=== PATIENT | male | born 2000 | race Caucasian/White ===

== ENCOUNTER 2021-08-04 00:01 | Emergency (ER) | payer MEDICAID ==
[~2021-08-04] VITALS: Ht 188 cm; Wt 120.2 kg
--- NOTE | 2021-08-04 00:39 | NUR ---
Patient walked into ER c/o sharp back pain radiating to the knee with a pain scale of 7/10
--- NOTE | 2021-08-04 00:42 | NUR ---
Dr Pacheco in room for ROSS
[2021-08-04] MEDS ORDERED: HYDR-4209 PO (00:51)
[2021-08-04] MEDS ORDERED: CYCL10TA9 PO (00:51)
--- NOTE | 2021-08-04 01:29 | NUR ---
Patient discharged to home in stable condition. Written and verbal after care instructions given. Patient verbalizes understanding of instructions. Stressed follow up or return to ER for worsening s/s. Patient is able to ambulate steady gait, A/Ox4, no distress noted.
[2021-08-04 01:30] VITALS: BP 111/67
== END 2021-08-04 01:30 | disposition home or self-care (01) ==
LOC: ER 00:08
DX: M54.50 Low back pain, unspecified (principal)
CPT/HCPCS: 72100; A4663

== ENCOUNTER 2021-08-11 01:30 | Emergency (ER) | payer MEDICAID ==
[~2021-08-11] VITALS: Ht 188 cm; Wt 120.2 kg
[~2021-08-11 01:30] MED LIST: CYCL10TA9 PO; HYDR-4209 PO
--- NOTE | 2021-08-11 02:25 | NUR ---
Patient walked into ER c/o lower back pain. Patient is ambulatory with steady gait
[2021-08-11] MEDS ORDERED: KETOROLAC TROMETHAMINE 60 MG INJ IM ONE (02:37)
[2021-08-11] MEDS: KETOROLAC TROMETHAMINE 60 MG INJ IM ONE (02:40)
[2021-08-11 03:04] LABS: *BILIRUBIN,URIN NEGATIVE (NEGATIVE); *BLOOD, URINE 2+ (NEGATIVE); *CLARITY,URINE CLEAR (CLEAR); *COLOR,URINE YELLOW (YELLOW); *KETONES,URINE TRACE (NEGATIVE); *UROBILINOGEN,URINE 0.2 E.U./dl (NORMAL); LEUKOCYTE ESTERASE ,URINE NEGATIVE (NEGATIVE); NITRITE, URINE NEGATIVE (NEGATIVE); UGLUCOSE NEGATIVE (NEGATIVE)
[2021-08-11 03:12] LABS: BACTERIA,URINE NONE SEEN /HPF (NONE SEEN); MUCUS,URINE FEW /LPF (0-FEW); RBC,URINE 20-50 /HPF (0-3); SQUAMOUS EPITHELIAL CELL,UR FEW /HPF (NONE SEEN); WBC,URINE 0-3 /HPF (0-3)
--- NOTE | 2021-08-11 03:48 | NUR ---
US tech into do procedure.
[2021-08-11 04:27] VITALS: BP 125/68
--- NOTE | 2021-08-11 04:27 | NUR ---
Patient discharged to home in stable condition. Written and verbal after care instructions given. Patient verbalizes understanding of instructions. Stressed follow up or return to ER for worsening s/s. Patient is able to ambulate steady gait
== END 2021-08-11 04:28 | disposition home or self-care (01) ==
LOC: ER 01:34
DX: M54.50 Low back pain, unspecified (principal); N20.0 Calculus of kidney; Z87.442 Personal history of urinary calculi; R31.29 Other microscopic hematuria; R03.0 Elevated blood-pressure reading, without diagnosis of hypertension
CPT/HCPCS: 76770; 81001; 96372; 99284; J1885; A4663

== ENCOUNTER 2022-12-27 17:25 | Emergency (ER) | payer MEDICAID ==
[~2022-12-27] VITALS: Ht 188 cm; Wt 120.2 kg
[2022-12-27] MEDS ORDERED: TDAP DIPH,PERTUSS,TET VAC/PF 0.5 ML DISP.SYRIN IM ONE ×2 (19:55→20:00)
[2022-12-27] MEDS ORDERED: KETOROLAC TROMETHAMINE 60 MG INJ IM ONE ×2 (19:55→20:00)
[2022-12-27] MEDS ORDERED: MORPHINE SULFATE 4 MG/1 ML DISP.SYRIN ONE (20:42)
[2022-12-27] MEDS ORDERED: MORPHINE SULFATE 4 MG/1 ML DISP.SYRIN IM ONE (20:45)
[2022-12-27] MEDS ORDERED: IBUP-1958 PO (21:50)
[2022-12-27 21:53] VITALS: BP 132/85; TEMP 98; O2SAT 98
== END 2022-12-27 21:54 | disposition home or self-care (01) ==
LOC: ER 17:27
DX: S53.401A Unspecified sprain of right elbow, initial encounter (principal); Z79.899 Other long term (current) drug therapy; W18.39XA Other fall on same level, initial encounter; Y93.89 Activity, other specified; Y92.89 Other specified places as the place of occurrence of the external cause; Y99.8 Other external cause status
CPT/HCPCS: 99284; 73030; 73060; 73080; 90715; 96372 ×2; 90471; J1885; J2270; A4663

== ENCOUNTER 2024-03-30 21:37 | Emergency (ER) | payer SELFPAY ==
[~2024-03-30] VITALS: Ht 190.5 cm; Wt 113.4 kg
[~2024-03-30 21:37] MED LIST changes: +IBUP-1958 PO
[2024-03-30] MEDS ORDERED: FLUT16SP16 BNOSTRILS (22:31)
[2024-03-30] MEDS ORDERED: AMOX-430 PO (22:31)
[2024-03-30 22:50] VITALS: BP 137/87; TEMP 98.6; O2SAT 99
== END 2024-03-30 22:50 | disposition home or self-care (01) ==
LOC: ER 21:38
DX: H65.92 Unspecified nonsuppurative otitis media, left ear (principal); H69.90 Unspecified Eustachian tube disorder, unspecified ear; I10 Essential (primary) hypertension
CPT/HCPCS: A4606; A4663